=== PATIENT | male | born 1970 | race Caucasian/White ===

== ENCOUNTER 2024-01-21 08:31 | Emergency (ER) | payer OTHER ==
[~2024-01-21] VITALS: Ht 167.6 cm; Wt 108.2 kg
[~2024-01-21 08:31] MED LIST: NO HOME MEDICATIONS
[2024-01-21 08:56] LABS: BASO # 0.08 K/mm3 (0.02-0.10); EOS # 0.15 K/mm3 (0.04-0.40); EOS % 1.5 % (0.0-4.0); HEMATOCRIT 51.4 % (42.0-52.0); HEMOGLOBIN 17.5 g/dL (13.5-18.0); LYMPH# 1.91 K/mm3 (1.50-4.00); MEAN CELL VOLUME 92 fl (78-100); MEAN CORPUSCULAR HEMOGLOBIN 31 pg (27-31); MEAN CORPUSCULAR HGB CONC 34 g/dL (33-37); MEAN PLATELET VOLUME 9.4 fl (7.4-10.4); MONO # 0.59 K/mm3 (0.20-0.80); NEU # 7.46 K/mm3 (1.40-6.50); PLATELET COUNT 383 K/mm3 (130-400); RED BLOOD COUNT 5.61 M/mm3 (4.20-5.60); RED CELL DISTRIBUTION WIDTH 14.1 % (11.5-14.5); WHITE BLOOD COUNT 10.2 K/mm3 (4.8-10.8)
[2024-01-21] MEDS ORDERED: Metoprolol Tartrate 1 MG/ML 5 ML VIAL IV ONE ×3 (09:00→09:30)
[2024-01-21 09:09] LABS: ALBUMIN 4.2 g/dL (3.5-5.0)
[2024-01-21 09:10] LABS: CALCIUM 9.4 mg/dL (8.3-10.5)
[2024-01-21 09:11] LABS: TOTAL PROTEIN 6.6 g/dL (6.4-8.3)
[2024-01-21 09:13] LABS: TOTAL BILIRUBIN 0.8 mg/dL (0.2-1.2)
[2024-01-21] MEDS ORDERED: dilTIAZem 25 MG/5 ML VIAL IV ONE (09:30)
[2024-01-21 09:34] LABS: TROPONIN-I 0.037 ng/mL (0.00-0.033)
[2024-01-21] MEDS ORDERED: dilTIAZem CD 120 MG CAP PO ONE (10:00)
[2024-01-21] MEDS ORDERED: Apixaban 5 MG TABLET PO ONE (10:00)
[2024-01-21] MEDS ORDERED: CARDIZEM120 M1 PO (11:35)
[2024-01-21] MEDS ORDERED: ELIQUIS5 MG PO (11:35)
[2024-01-21 13:09] VITALS: BP 120/74
== END 2024-01-21 13:00 | disposition home or self-care (01) ==
LOC: ED 08:31
PROVIDERS: Family Medicine
DX: I48.91 Unspecified atrial fibrillation (principal); Z87.891 Personal history of nicotine dependence